=== PATIENT | female | born 1955 | race African-American/Black ===

== ENCOUNTER → 2019-08-02 | Outpatient (CLI) | payer OTHER | LOC: CAT 10:21 | DX: G93.89 Other specified disorders of brain (principal) ==

== ENCOUNTER 2019-10-16 18:38 | Emergency (ER) | payer OTHER ==
[~2019-10-16] VITALS: Ht 162.6 cm; Wt 72.6 kg
[2019-10-16 18:48] VITALS: BP 126/82
== END 2019-10-16 19:45 | disposition home or self-care (01) ==
LOC: ER 18:38
DX: S61.211A Laceration without foreign body of left index finger without damage to nail, initial encounter (principal); I10 Essential (primary) hypertension; E11.9 Type 2 diabetes mellitus without complications; E78.00 Pure hypercholesterolemia, unspecified; Z88.2 Allergy status to sulfonamides; W26.8XXA Contact with other sharp object(s), not elsewhere classified, initial encounter; Y93.89 Activity, other specified; Y92.89 Other specified places as the place of occurrence of the external cause; Y99.8 Other external cause status

== ENCOUNTER 2019-10-25 10:51 | Emergency (ER) | payer OTHER ==
[~2019-10-25] VITALS: Ht 162.6 cm; Wt 72.6 kg
[2019-10-25 12:00] VITALS: BP 122/53
== END 2019-10-25 12:00 | disposition home or self-care (01) ==
LOC: ER 10:51
DX: S61.211D Laceration without foreign body of left index finger without damage to nail, subsequent encounter (principal); I10 Essential (primary) hypertension; E11.9 Type 2 diabetes mellitus without complications; E78.00 Pure hypercholesterolemia, unspecified; Z88.2 Allergy status to sulfonamides; X58.XXXD Exposure to other specified factors, subsequent encounter

== ENCOUNTER 2020-08-09 12:20 | Emergency (ER) | payer OTHER ==
[~2020-08-09] VITALS: Ht 162.6 cm; Wt 73.5 kg
[2020-08-09] MEDS ORDERED: INVEGA SUS117 MG/0.7 IM (12:43)
[2020-08-09] MEDS ORDERED: LEVO-T88 MCG PO (12:43)
[2020-08-09] MEDS ORDERED: MEVACOR10 MG PO (12:44)
[2020-08-09] MEDS ORDERED: METFORMIN HCL500 MG PO (12:44)
[2020-08-09 12:55] LABS: URINE BILIRUBIN NEGATIVE (Negative); URINE BLOOD NEGATIVE (Negative); URINE CLARITY CLEAR; URINE COLOR YELLOW; URINE GLUCOSE-RANDOM* NEGATIVE (Negative); URINE KETONES NEGATIVE (Negative); URINE LEUKOCYTES-REFLEX TRACE (Negative); URINE NITRITE-REFLEX NEGATIVE (Negative); URINE PROTEIN (DIPSTICK) NEGATIVE (Negative); URINE SPECIFIC GRAVITY <= 1.005 (1.005-1.035); URINE UROBILINOGEN 0.2 E.U./dl (0.2-1.0)
[2020-08-09 12:58] LABS: ABSOLUTE NEUTROPHILS 2.5 thou/uL (1.4-8.2); EOSINOPHILS 1.5 % (0.0-3.0); HEMATOCRIT 37.2 % (37.0-47.0); HEMOGLOBIN 12.2 gm/dL (12.0-15.0); LYMPHOCYTES 35.2 % (24.0-44.0); MCHC 32.8 g/dL (28.0-37.0); MCV 85.3 fL (80.0-100.0); MONOCYTES 12.5 % (1.0-8.0); PLATELET COUNT 242 thou/uL (150-400); POLYS 49.8 % (36.0-66.0); RBC 4.36 mil/uL (4.20-5.00); WBC 5.1 thou/uL (4.0-11.0)
[2020-08-09 13:06] LABS: CALCIUM 9.7 mg/dL (8.5-10.1); CREATININE 1.1 mg/dL (0.6-1.0); POTASSIUM 3.5 mmol/L (3.5-5.1)
[2020-08-09 13:12] LABS: ALBUMIN 4.2 g/dL (3.4-5.0); TOTAL BILIRUBIN 0.3 mg/dL (0.2-1.0); TOTAL PROTEIN 8.3 g/dL (6.4-8.2)
[2020-08-09] MEDS ORDERED: HYDROXYZINE HCL10 M2 PO (13:36)
[2020-08-09 13:42] VITALS: BP 157/94
--- NOTE | 2020-08-09 13:46 | EKG ---
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: NATTY : 1955 Requested By: Vj Irene Order Number: [id number] MD: Ronal Skelton Measurements Intervals [place] Rate: 57 P: NM: QRS: -19 QRSD: 102 T: -48 QT: 427 QTc: 416 Interpretive Statements Atrial fibrillation Borderline left axis deviation Abnormal T, consider ischemia, diffuse leads Baseline wander in lead(s) I,II,aVR,V2 No previous ECG available for comparison Electronically Signed On 08-09-2020 13:46:13 BIOLOGICAL CHEMIST by Ronal Skelton [email or web address] <ELECTRONICALLY SIGNED> By: Ronal Skelton MD, [facility] 08/09/20 1346 1248 1248 Ronal Skelton MD, FACC /EPI
== END 2020-08-09 13:41 | disposition home or self-care (01) ==
LOC: ER 12:20
PROVIDERS: Emergency Medicine
DX: R42 Dizziness and giddiness (principal); I10 Essential (primary) hypertension; E11.9 Type 2 diabetes mellitus without complications; E78.5 Hyperlipidemia, unspecified; Z79.899 Other long term (current) drug therapy; Z88.2 Allergy status to sulfonamides